=== PATIENT | female | born 2000 | race Caucasian/White ===

== ENCOUNTER 2021-06-23 14:41 | Emergency (ER) | payer BC, SELFPAY ==
[2021-06-23 14:54] VITALS: BP 140/94; PULSE 128; RESP 20; TEMP 37.2; O2SAT 98
--- NOTE | 2021-06-23 14:56 | ED.CHESTPAIN ---
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 Reports that she called her OB DR Huffman office and was told to go to the Urgent care. Patient is 24 weeks 6 days with a due date of October 06. This is her first , with twins. Takes an aspirin a day. Has a history of anxiety. Plans to deliver at [place]. States that she has been feeling the babies move. Related Data Home Medications Medication Instructions Recorded Confirmed folic acid 06/23/21 ondansetron HCl 06/23/21 [id number] fum-folic ac-om3 pkg PO 06/23/21 [Daily ] sertraline mg 06/23/21 Allergies Allergy/AdvReac Type Severity Reaction Status Date / Time No Known Allergies Allergy Verified 01/05/15 17:20 Review of Systems Review of Systems: All systems reviewed & are unremarkable except as noted in HPI and below Constitutional: Constitutional: Reports no additional constitutional complaints, Denies chills and Denies fever(s) Eyes: Eyes: Reports no additional eye complaints, Denies change in vision and Denies photophobia Cardiovascular: Cardiovascular: Reports as per HPI, Reports chest pain and Reports rapid heart rate Respiratory: Respiratory: Reports as per HPI and Reports dyspnea Gastrointestinal: Gastrointestinal: Reports as per HPI, Denies abdominal pain and Reports nausea Musculoskeletal: Musculoskeletal: Reports no additional musculoskeletal complaints Integumentary/Breasts: Skin/Breast: Reports system reviewed and no additional complaints, except as docu Neurologic: Reports system reviewed and no additional complaints, except as documented, Denies dizziness and Denies headache(s) Psychiatric: Psychiatric: Reports no additional psychiatric complaints Allergic/Immunologic: Allergic/Immunologic: Reports no additional allergic/immunologic complaints [facility] Past Medical History Medical History (Updated 06/23/21 @ 15:34 by Blanca Dubose) Anxiety Comments At the time of my signature, I reviewed and agree with the nursing past medical, surgical, social, and family history. There is no relevant family history pertinent to the patient complaint. Exam Const: General: healthy appearing and alert Nutritional Appearance: well nourished Orientation/consciousness: patient oriented x3 Limitations: no limitations HENMT: Head: normal to inspection Ears: external ears normal Eyes: Conjunctivae: conjunctivae normal Pupils: Equal, round and reactive pupils present Neck: Neck: normal visual inspection, no lymphadenopathy and no meningeal signs Chest: Chest palpation & inspection: normal inspection of the chest Resp: Effort & Inspection: normal respiratory effort and no use of accessory muscles Auscultation: clear to auscultation bilaterally, no crackles, no rales, no rhonchi and no wheezes Cardio: Jugular venous distension: no JVD Rate: tachycardic Rhythm: abnormal rhythm Peripheral pulses: radial pulses present bilateral Back/Spine/Pelvis: Back: no CVA tenderness Skin: General skin exam: normal color Rashes: no rashes Wounds: no wounds Neuro: General: patient oriented x3, moves all extremities, no meningeal signs and no focal motor deficits Speech: normal speech Gait exam (Neuro): Normal gait present Extrem: General: normal to inspection and no pedal edema Psych: Appearance: well kempt Affect: Anxious affect present Thought content: Yes Normal thought content present Course Course Emergency Course: Transfer instructions reviewed with patientjam
--- NOTE | 2021-06-23 15:04 | ECG_ITS ---
Measurements Intervals [place] Rate: 150 P: 49 WA: 115 QRS: 47 QRSD: 91 T: 1 QT: 291 QTc: 460 Interpretive Statements SINUS TACHYCARDIA WITH SHORT WA INTERVAL NONSPECIFIC ST & T-WAVE ABNORMALITY- INFERIOR LEADS BASELINE ARTIFACT- I, II, III, AVR, AVL, AVF, V2-V6 ABNORMAL ECG Electronically Signed On 06-23-2021 16:56:35 CDT by German Javier D.O.
--- NOTE | 2021-06-23 15:27 | PC.NURSE ---
Pt reports she is with twins that share the same placenta. Reports she has been feeling the babies move like normal.
== END 2021-06-23 15:20 | disposition short-term general hospital (02) ==
PROVIDERS: Emergency Provider Nurse Practitioner
DX: O90.89 Other complications of the puerperium, not elsewhere classified (principal); R07.9 Chest pain, unspecified; Z3A.24 24 weeks gestation of pregnancy
CPT/HCPCS: 93005; 99215; G0463

== ENCOUNTER 2021-06-23 15:36 | Emergency (ER) | payer BC, SELFPAY ==
--- NOTE | ~2021-06-23 | CT_ITS ---
EXAMINATION: CTA chest PE protocol DATE: 06/23/2021 18:39 INDICATION: Chest pain and shortness of breath TECHNIQUE: Computed tomography angiography (CTA) of the chest was performed with 100 mL Omnipaque-350 intravenous contrast timed to evaluate the pulmonary arteries. Coronal maximum intensity projection 3D-reconstructions were created by the technologist. The dose-length product (DLP) was 319.17 mGy-cm. Automated exposure control and iterative reconstruction technique were employed. COMPARISON: None. FINDINGS: The pulmonary arteries are well-opacified. No pulmonary embolism is identified. Respiratory motion artifact slightly limits the examination. There is atelectasis of the lungs. No focal airspac e opacity is identified. There is no pleural effusion or pneumothorax. No pathologically enlarged tho racic lymph nodes are identified. The heart size is normal. The visualized osseous structures are unr emarkable. IMPRESSION: 1. No pulmonary embolism or acute cardiopulmonary abnormality. Reviewed, dictated and finalized at location A.
--- NOTE | ~2021-06-23 | US_ITS ---
EXAMINATION: US venous doppler [facility] DATE: 06/23/2021 17:30 INDICATION: Shortness of breath and tachycardia TECHNIQUE: Isabel scale images without and with compression and Doppler images of the bilateral lower e xtremity veins were obtained. COMPARISON: None FINDINGS: The right common femoral vein, profunda femoral vein, femoral vein, popliteal vein, peroneal trunk, p osterior tibial veins, and greater saphenous vein are patent. The left common femoral vein, profunda femoral vein, femoral vein, popliteal vein, peroneal trunk, po sterior tibial veins, and greater saphenous vein are patent. IMPRESSION: 1. Patent bilateral lower extremity veins. No evidence of deep venous thrombosis. Reviewed, dictated and finalized at location A. IMPRESSION: 1. Patent bilateral lower extremity veins. No evidence of deep venous thrombosi s.
--- NOTE | ~2021-06-23 | XR_ITS ---
EXAMINATION: XR chest 2V EXAM DATE: 06/23/2021 16:03 INDICATION: Chest pain, shortness of breath, pt is 25 weeks , tachycardia. TECHNIQUE: Frontal and lateral projections of the chest obtained and reviewed. There is no prior don dy for comparison. FINDINGS: The lungs are clear. There are no pleural effusions. The cardiomediastinal silhouette is within normal limits. There is no pneumothorax suspected. The bones and soft tissues are unremarkab le. IMPRESSION: Normal chest x-ray exam. Reviewed, dictated and finalized at location B. IMPRESSION: Normal chest x-ray exam.
[2021-06-23 15:41] VITALS: BP 169/94; PULSE 132; RESP 18; TEMP 37.1; O2SAT 100
--- NOTE | 2021-06-23 15:42 | ECG_ITS ---
Measurements Intervals [place] Rate: 144 P: 61 WI: 119 QRS: 54 QRSD: 87 T: 6 QT: 304 QTc: 471 Interpretive Statements SINUS TACHYCARDIA WITH SHORT WI INTERVAL NONSPECIFIC ST & T-WAVE ABNORMALITY- INFERIOR LEADS BASELINE WANDER- V4-V5 ABNORMAL ECG Electronically Signed On 06-23-2021 17:00:11 CDT by German Javier D.O.
[2021-06-23 15:51] VITALS: PULSE 137
[2021-06-23 15:54] VITALS: PULSE 137
[2021-06-23 16:08] LABS: Basophils Absolute Auto 0.1 K/mm3 (0.0-0.1); Basophils Percent Auto 0.3 % (0.2-1.2); Eosinophils Absolute Auto 0.6 K/mm3 (0-0.3); Hematocrit 33.9 % (37.0-47.0); Hemoglobin 11.6 g/dL (12.0-15.0); Immature Granulocyte Absolute 0.33 K/mm3 (0.00-0.031); Immature Granulocyte Percent A 2.1 % (0-0.5); Lymphocytes Absolute Auto 2.65 K/mm3 (0.9-3.2); Mean Corpuscular HGB Conc 34.2 g/dl (32-36); Mean Corpuscular Hemoglobin 30.2 pg (26-34); Mean Corpuscular Volume 88.3 fl (80-100); Mean Platelet Volume 9.4 fl (7.4-10.4); Monocytes Absolute Auto 1.1 K/mm3 (0.1-0.6); Monocytes Percent Auto 7.1 % (2.6-8.5); Neutrophils Absolute Auto 10.8 K/mm3 (1.3-6.7); Neutrophils Percent Auto 69.5 % (45.5-73.1); Platelet Count Result 310 k/mm3 (150-375); Red Blood Count 3.84 M/mm3 (4.2-5.4); Red Cell Distribution Width 11.8 % (11.5-14.5); White Blood Count 15.6 K/mm3 (4.5-10.0)
[2021-06-23 16:20] LABS: INR 0.8; Prothrombin Time 11.3 Seconds (11.1-14.7)
[2021-06-23 16:21] LABS: Partial Thromboplastin Time 22.1 SECONDS (22.3-36.8)
[2021-06-23 16:23] LABS: Alanine Aminotransferase 22 U/L (4-35); Albumin Level 3.5 g/dL (3.5-5.1); Alkaline Phosphatase 138 U/L (38-126); Anion Gap 9 mmol/L (8-16); Aspartate Amino Transferase 25 U/L (14-36); Bilirubin,Total 0.3 mg/dL (0.2-1.3); Blood Urea Nitrogen 5 mg/dL (7-17); Calcium 9.3 mg/dL (8.4-10.2); Carbon Dioxide 20 mmol/L (22-30); Chloride 105 mmol/L (98-107); Estimated CRCL calculation 138 ml/min; Estimated Glomerular Filt Rate > 60; Glucose 105 mg/dL (65-110); Potassium 3.5 mmol/L (3.4-5.0); Sodium 134 mmol/L (137-145)
[2021-06-23 16:34] LABS: Troponin I < 0.012 ng/mL (0.000-0.034)
[2021-06-23] MEDS: SODIUM CHLORIDE 0.9% IV 1,000 ML 999 ML IV CONT (16:35)
[2021-06-23 16:40] LABS: D Dimer 1.64 ug/mL (<0.48)
--- NOTE | 2021-06-23 16:49 | ED.CHESTPAIN ---
HPI - Chest Pain General Chief Complaint: Chest Pain Stated Complaint: CP Time Seen by Provider: 06/23/21 15:41 Source: patient Mode of arrival: EMS Limitations: no limitations History of Present Illness HPI narrative: This is a 21 year old female that presents to the ER for intermittent chest pain noted over the last couple of days. Reports the pain is on the left side of her chest. It lasts briefly. It is worse with deep breathing. Reports today she noted feeling short of breath with exertion which prompted her to be seen in the Urgent care. Patient was noted to be tachycardic into the 150s, so was sent to the ER for further evaluation. Patient denies any current chest pain. She is currently 25 weeks . Her OB is Dr. Saldana. She has a monochorionic diamniotic twin . Denies fever, cough, abdominal pain, pelvic cramping, or vaginal bleeding. Related Data Home Medications Medication Instructions Recorded Confirmed Baby Aspirin 06/23/21 folic acid 06/23/21 ondansetron HCl 06/23/21 [id number] fum-folic ac-om3 pkg PO 06/23/21 [Daily ] sertraline mg 06/23/21 Allergies Allergy/AdvReac Type Severity Reaction Status Date / Time No Known Allergies Allergy Verified 06/23/21 15:51 Review of Systems Review of Systems: CONSTITUTIONAL: Denies fever CARDIOVASCULAR: Reports chest pain, palpitations. Denies edema. RESPIRATORY: Reports dyspnea. Denies cough GASTROINTESTINAL: Denies abdominal pain, nausea, vomiting GENITOURINARY: Denies dysuria All systems reviewed & are unremarkable except as noted in HPI and below PMFSH Past Medical History Medical History (Updated 06/23/21 @ 19:46 by Fariba Bush PA-C) Anxiety Social History Social History (Updated 06/23/21 @ 16:59 by Fariba Bush PA-C) Substance use: never Gender identity (if verbalized by the patient): Female Exam Narrative: GENERAL: Well-appearing, well-nourished, and in no acute distress. HEAD: Normocephalic, atraumatic. EYES: EOMI. ENT: Nares clear, no rhinorrhea or epistaxis. Mucous membranes moist. Oropharynx without tonsillar hypertrophy exudate or other lesions. NECK: Supple. No adenopathy or masses CHEST: Clear to auscultation. No respiratory distress. No wheezes rales or rhonchi HEART: Regular rhythm, tachycardic. No murmur heard. Normal peripheral pulses. ABDOMEN: Gravid, nontender, nondistended, normal active bowel sounds. EXTREMITIES: Normal range of motion. No edema. SKIN: Warm, dry, no rash. NEURO: No focal deficits. Alert and oriented x3. PSYCH: Normal mood and affect Course Consultations Consultation #1: Spoke with Dr. Saldana about patient and workup. Will follow up with patient in clinic Date: 06/23/21 Time: 19:38 Vital Signs Vital signs: Vital Signs Temperature 98.7 F 06/23/21 15:41 Pulse Rate 132 H 06/23/21 15:41 Respiratory Rate 18 06/23/21 15:41 Blood Pressure 169/94 H 06/23/21 15:41 Pulse Oximetry 100 06/23/21 15:41 Temperature 98.7 F 06/23/21 15:41 Pulse Rate 110 H 06/23/21 19:47 Respiratory Rate 17 06/23/21 19:47 Blood Pressure 123/70 06/23/21 19:47 Pulse Oximetry 100 06/23/21 19:47 Procedures Other Procedure Procedure 1: Other Procedure: Bedside ultrasound performed. I do see two fetuses with active cardiac motion and appropriate movement MDM - Chest Pain MDM Narrative Medical decision making narrative: Patient presents to the ER for chest pain and shortness of breath intermittently noted over the last couple of days. She is currently 25 weeks and her OB is Dr. Saldana. She is afebrile and nontoxic-appearing. Her vitals are stable. She denies any pelvic cramping or vaginal bleeding. Is feeling the babies move around. Oxygen saturation has remained normal on room air. Patient was tachycardic into the 130s on arrival. This did respond to fluid administration. Current heart rate 100. CBC does show leukocytosis to 15.
[2021-06-23 18:12] LABS: Add Urine Microscopic? NO; Appearance Urine Clear (Clear); Bilirubin Urine Negative (Negative); Blood Urine Negative (Negative); Color Urine Straw (Yellow); Glucose Urine UA Negative (Negative); Ketones Urine Negative (Negative); Leukocyte Esterase Ur Negative LEU/UL (Negative); Nitrate Urine Negative (Negative); Protein Urine Negative (Negative); Specific Grav Ur 1.011 (1.001-1.035); Urobilinogen Urine Negative mg/dL (<2.0)
[2021-06-23 18:14] VITALS: BP 138/88; PULSE 115; RESP 22; O2SAT 100
--- NOTE | 2021-06-23 19:43 | PC.NURSE ---
OB at bedside at this time. Pt resting on stretcher A&Ox4.
[2021-06-23 19:47] VITALS: BP 123/70; PULSE 110; RESP 17; O2SAT 100
[2021-06-23 19:53] LABS: Troponin I < 0.012 ng/mL (0.000-0.034)
--- NOTE | 2021-06-23 20:13 | PC.NURSE ---
[id number] Portable monitor brought to pt's bedside to monitor twins. Both twin A & B have baseline of 140 with moderate variability and 10x10 accelerations noted. Monitoring was intermittent d/t gestational age of 25 weeks. Pt is feeling adequate movement.
== END 2021-06-23 20:17 | disposition home or self-care (01) ==
PROVIDERS: Physician Assistant; Emergency Provider Emergency Medicine
DX: R07.9 Chest pain, unspecified (principal); R00.0 Tachycardia, unspecified; F41.9 Anxiety disorder, unspecified
CPT/HCPCS: 36415; 71046; 71275; 80048; 80076; 81003; 84484; 85025; 85380; 85610; 85730; 93005; 93970; 96360; 96361; 99284; J7030; Q9967

== ENCOUNTER 2021-06-29 13:42 | Outpatient (RCR) | payer BC, SELFPAY ==
--- NOTE | 2021-06-29 15:50 | PC.NURSE ---
Pt here stating she was having a lot of anxiety about the babies. Stated she just needed to have them monitored. Pt was out of her anxiety medication for a few days and went to the ED recently with an anxiety attack. States she has not had a therapist for awhile. Encouraged pt to get another therapist as anxiety may worsen with or after . Pt might be delivering at [place] due to high risk. ??mono/mono twins? pt stated because they were identical. Sat with pt awhile and had the babies on the monitor for a few minutes off and on. Pt became more calm, discussed movement. Pt states babies were moving a lot and worried that it was her anxiety that was making them move more. Discussed movement being good and watching for it at home. Instructed she may come in for monitoring if she is concerned. Verbalized understanding. Discussed labor precautions and what all to notify provider for.
== END 2021-07-05 07:24 | disposition home or self-care (01) ==
LOC: ANHOBOP 13:42
PROVIDERS: Visit Provider Obstetrics & Gynecology
DX: O99.342 Other mental disorders complicating pregnancy, second trimester (principal); F41.9 Anxiety disorder, unspecified; Z3A.25 25 weeks gestation of pregnancy
CPT/HCPCS: 99199

== ENCOUNTER 2022-03-02 15:33 | Outpatient (CLI) | payer BC, OTHER, SELFPAY ==
[2022-03-02 16:49] LABS: Beta HCG Quantitative < 2.39 mIU/ML
== END 2022-03-02 15:34 | disposition home or self-care (01) ==
LOC: ANHLAB 15:36
PROVIDERS: Visit Provider Obstetrics & Gynecology
DX: N92.6 Irregular menstruation, unspecified (principal)
CPT/HCPCS: 36415; 84702

== ENCOUNTER 2022-12-11 18:04 | Emergency (ER) | payer BC, OTHER, SELFPAY ==
[2022-12-11 18:16] VITALS: BP 156/94; PULSE 137; RESP 16; TEMP 36.9; O2SAT 100
--- NOTE | 2022-12-11 18:36 | ED.GENADULT ---
HPI - General Adult General Chief complaint: Ear Stated complaint: pink eye, ear infection Source: patient Mode of arrival: ambulatory Limitations: no limitations History of Present Illness HPI narrative: Patient presents for evaluation of right-sided ear pain for the last 2 days. She has associated muffled hearing. Her son has an ear infection and she is wondering if she does also. She reports sore throat and a mild cough. No fever, chills, nausea, vomiting, shortness of breath. She states she has also experienced thick green drainage from both eyes over last 2 days. She had some blurry vision but that has since corrected. She does not wear glasses nor contact lenses. No additional complaints or concerns. Related Data Home Medications Medication Instructions Recorded Confirmed levonorgestrel 20 mcg/24 hours (8 1 device intrauterine ONCE 03/03/22 12/11/22 yrs) 52 mg intrauterine device (Mirena) alprazolam 0.25 mg tablet 0.25 mg PO QHS PRN Anxiety 10/03/22 12/11/22 sertraline 100 mg tablet 100 mg PO DAILY 10/03/22 12/11/22 Allergies Allergy/AdvReac Type Severity Reaction Status Date / Time No Known Allergies Allergy Verified 12/11/22 18:13 Review of Systems Review of Systems: CONSTITUTIONAL: Denies fever, chills, or sweats. EYES: Reports green drainage from both eyes. Reports recent blurred vision, since resolved. ENT: Reports sore throat, bilateral otalgia and muffled hearing in right ear CARDIOVASCULAR: Denies chest pain, palpitations, or edema. RESPIRATORY:Reports cough. Denies dyspnea. GASTROINTESTINAL: Denies abdominal pain, nausea, vomiting, or diarrhea. GENITOURINARY: Denies dysuria or hematuria. SKIN: Denies rash or itching. MUSCULOSKELETAL: Denies back pain, joint pain, or myalgia. NEUROLOGIC: Denies headache, numbness, dizziness, or weakness. PSYCHIATRIC: Denies anxiety or depression. [facility] Past Medical History Medical History Anxiety Depression Encounter for insertion of mirena IUD Encounter for insertion of mirena IUD (~03/03/22) Encounter for screening examination for sexually transmitted disease Irregular periods Surgical History Surgical History Delivery by section (09/01/21) twin delivery @ 34 weeks History of gynecological procedure (09/01/21) Paragard IUD inserted History of placement of ear tubes History of tonsillectomy and adenoidectomy Family History Family History (Updated 12/11/22 @ 18:45 by RACHEL Duarte, ) Mother Family history non-contributory Social History Social History Smoking status: Never smoker Second hand tobacco smoke exposure: No Alcohol intake: current Drinks per week: 1 Substance use: never Substance use type: does not use Additional living arrangements comments: parents and boyfriend 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 HEAD: Normocephalic, atraumatic. EYES: PERRLA and EOMI. ENT: Nares clear, no rhinorrhea or epistaxis. Mucous membranes moist. She has posterior pharyngeal erythema without exudate. Uvula is midline. Unable to visualize TM's due to cerumen in bilateral ear canals. NECK: Supple. No adenopathy or masses. No carotid bruits or JVD CHEST: Clear to auscultation. No respiratory distress. No wheezes rales or rhonchi HEART: Regular rate and rhythm. No murmur heard. Normal peripheral pulses. ABDOMEN: Soft, nontender, nondistended, normal active bowel sounds. EXTREMITIES: Normal range of motion. No edema. SKIN: Warm, dry, no rash. NEURO: No focal deficits. Alert
== END 2022-12-11 18:36 | disposition home or self-care (01) ==
PROVIDERS: Emergency Provider Nurse Practitioner; PCP Internal Medicine
DX: H61.23 Impacted cerumen, bilateral (principal); J02.9 Acute pharyngitis, unspecified; H10.30 Unspecified acute conjunctivitis, unspecified eye; F41.9 Anxiety disorder, unspecified; F32.9 Major depressive disorder, single episode, unspecified
CPT/HCPCS: 69209; 87081; 87880; 99213; G0463

== ENCOUNTER 2025-03-04 12:52 | Emergency (ER) | payer BC, SELFPAY ==
[2025-03-04 13:02] VITALS: BP 136/88; PULSE 120; RESP 16; TEMP 36.7; O2SAT 100
[2025-03-04 13:23] LABS: EDSTREPNEGPOS1 Positive (Negative)
--- NOTE | 2025-03-04 13:38 | ED_ITS ---
HPI - URI/Sore Throat General Chief Complaint: Upper Respiratory Infection Stated Complaint: Strep Symptoms Time Seen by Provider: 03/04/25 13:20 Source: patient and RN notes reviewed Mode of arrival: ambulatory Limitations: no limitations History of Present Illness HPI Narrative: 24-year-old female presents to the [facility] complaining upper respiratory symptoms for 5 days. Patient reports having pain with swallowing and nasal dryness the last 5 days. Boyfriend was diagnosed with strep throat and was placed on antibiotics. She is wondering if she has strep throat as well. She denies having a sore throat, fevers, chills, body aches, difficulty swallowing, difficulty breathing, nausea, vomiting, or diarrhea. Patient said she took a couple amoxicillin is on Sunday when her symptoms started that she had left over. She has been taking Tylenol for her pain with some relief. Related Data Home Medications ?Medication ?Instructions ?Recorded ?Confirmed ?Last Taken ?Type alprazolam 0.25 mg tablet 0.25 mg PO QHS PRN Anxiety 10/03/22 02/04/24 Unknown History sertraline 100 mg tablet 100 mg PO DAILY 10/03/22 02/04/24 Unknown History semaglutide (weight loss) 1 mg/0.5 1 mg subcut WEEKLY 09/24/24 Unknown History mL subcutaneous pen injector (Wegovy) atomoxetine 25 mg capsule mg PO 03/04/25 Unknown History atomoxetine 40 mg capsule mg PO 03/04/25 Unknown History sertraline 50 mg tablet mg 03/04/25 Unknown History Allergies Allergy/AdvReac Type Severity Reaction Status Date / Time No Known Allergies Allergy Verified 03/04/25 12:57 Review of Systems Review of Systems: CONSTITUTIONAL: Denies fever, chills, or sweats. EYES: Denies visual changes, redness, or discharge. ENT: Denies rhinorrhea, congestion, sore throat, or otalgia. Positive for pain with swallowing. CARDIOVASCULAR: Denies chest pain, palpitations, or edema. RESPIRATORY: Denies cough or dyspnea. GASTROINTESTINAL: Denies abdominal pain, nausea, vomiting, or diarrhea. GENITOURINARY: Denies dysuria or hematuria. SKIN: Denies rash or itching. MUSCULOSKELETAL: Denies back pain, joint pain, or myalgia. NEUROLOGIC: Denies headache, numbness, or weakness. PSYCHIATRIC: Denies anxiety or depression. All other systems reviewed are negative, except as documented in HPI. [facility] Past Medical History Medical History Encounter for insertion of mirena IUD (~03/03/22) Encounter for insertion of mirena IUD Encounter for screening examination for sexually transmitted disease Irregular periods Depression Anxiety Surgical History Surgical History History of gynecological procedure (09/01/21) mirena IUD inserted, removed 09/24/2024 Delivery by section (09/01/21) twin delivery @ 34 weeks History of placement of ear tubes History of tonsillectomy and adenoidectomy Family History Family History Mother Family history non-contributory Father No problems noted. Sibling No problems noted. Social History Social History Smoking status: Never smoker Second hand tobacco smoke exposure: No Alcohol intake: current Drinks per week: 1 Substance use: never Substance use type: does not use Do You Feel Safe in your Home?: Yes Lack of Transportation: No Lack of Food: Never True Current Housing: I Have Housing Concerned About Future Housing: No Difficulty Paying Gas/Electric Bills: No Difficulty Paying for Meds: No Currently Unemployed: No Education: Master's Degree or Higher Difficulty w/ Childcare or Family Care: No Living arrangements: with family Additional living arrangements comments: parents and boyfriend Occupation/Education: student Additional occupation/education comments: [employer] student Gender identity (if verbalized by the patient): Female Sexual Orientation (if Verbalized by the Patient): Straight or Heterosexual Comments At the time of my signature, I reviewed and agree with the nursing past medical, surgical, social, and family history. There is no relevant family history pertinent to the patient complaint. Exam Narrative: GENERAL: This is a well-nourished, well-developed adult, in no apparent distress. They are non ill-appearing, nontoxic appearing. Patient is anxious HEAD: normocephalic, atraumatic. EYES: Sclera clear/white. Vision is grossly intact. EARS: External ears normal, auditory canals clear and without drainage, TMs normal without perforation. Hearing grossly intact. NOSE: External nose normal with no obvious nasal discharge, nares without redness, no rhinorrhea. THROAT: Mucous membranes moist, posterior pharynx erythematous. No exudate. Uvula is midline NECK: Neck supple, non-tender without lymphadenopathy, masses or thyromegaly. CARDIOVASCULAR: Tachycardic rate and rhythm without murmurs, gallops, or rubs. RESPIRATORY: Clear to auscultation. Breath sounds equal bilaterally. No wheezes, rales, or rhonchi. SKIN: warm, Dry, intact with no suspicious lesions or rash, good texture and turgor. NEURO: awake, alert, and oriented to person, place and time. There were no obvious focal neurologic abnormalities. EXTREMITIES: No joint tenderness, effusion, or edema noted. Course Course Level of Care: Express Care Visit Vital Signs Vital signs: Vital Signs Temperature 98.1 F 03/04/25 13:02 Pulse Rate 120 H 03/04/25 13:02 Respiratory Rate 16 03/04/25 13:02 Blood Pressure 136/88 03/04/25 13:02 Pulse Oximetry 100 03/04/25 13:02 Temperature 98.1 F 03/04/25 13:02 Pulse Rate 120 H 03/04/25 13:02 Respiratory Rate 16 03/04/25 13:02 Blood Pressure 136/88 03/04/25 13:02 Pulse Oximetry 100 03/04/25 13:02 Reviewed MDM - URI/Sore Throat MDM Narrative Medical decision making narrative: Rapid strep is positive. Will treat empirically with amoxicillin. Discussed physical exam findings. Advised supportive measures and signs/symptoms to go to the ER. Pt is appropriate for outpt treatment and f/u. Differential Diagnosis Differential diagnosis: Likely upper respiratory infection, viral infection and pharyngitis Lab Data Attestation: I reviewed the patient's lab results. Labs: Lab Results 03/04/25 Range/Units 13:21 POC Grp A Strep Screen Positive (Negative) Critical Care Time Critical Care Time Critical Care Time: No Discharge Plan Discharge Clinical Impression: Acute streptococcal pharyngitis Patient Disposition: Home Condition: Stable Instructions: Antibiotic Form, Strep Throat (DC) Additional Instructions: You tested positive for strep throat. ?Please take the amoxicillin as prescribed until gone. ?You will be contagious for 24 hours after starting the medication. ?After 24 hours on antibiotics throw tooth brush away and start using a new one. Wash your sheets and cup/water bottle that is used daily. Do not share drinks. Take Tylenol or Ibuprofen for pain or fever, if able. ?Rest and stay hydrated. ?Follow up with your PCP in 3 days if symptoms are not improving. ?Go to the ER immediately if you develop worsening symptoms such as shortness of breath, difficulty swallowing. ? Patient Language: Kazakh Prescriptions: New amoxicillin 500 mg tablet 500 mg PO Q12H 10 Days Qty: 20 0RF No Action sertraline 50 mg tablet atomoxetine 25 mg capsule PO atomoxetine 40 mg capsule PO sertraline 100 mg tablet 100 mg PO DAILY alprazolam 0.25 mg tablet 0.25 mg PO QHS PRN (Reason: Anxiety) Wegovy 1 mg/0.5 mL pen injector 1 mg subcut WEEKLY Rx Instructions: administer weeks 9 through 12 of therapy Follow-up/Referrals: PHYSICIAN,HOGSHEAD FILLER [Primary Care Provider] - Stand Alone Forms: Work/School Release IP Time of Disposition: 13:30
== END 2025-03-04 13:32 | disposition home or self-care (01) ==
DX: J02.0 Streptococcal pharyngitis (principal); F41.9 Anxiety disorder, unspecified; F32.A Depression, unspecified
CPT/HCPCS: 87880; 99213; G0463

== ENCOUNTER 2025-04-07 09:21 | Emergency (ER) | payer BC, SELFPAY ==
--- NOTE | 2025-04-07 09:39 | ED_ITS ---
HPI - Ear Problem General Chief complaint: Ear Stated complaint: Ear Pain Time Seen by Provider: 04/07/25 09:39 Source: patient and RN notes reviewed Mode of arrival: ambulatory Limitations: no limitations History of Present Illness HPI Narrative: 24-year-old female presents Express Care complaining of bilateral ear pain for 3 days. Patient states her left ear is worse than right. Patient reports also having congestion and a sore throat. Patient denies any cough, fevers, body aches, chills, or any other symptoms. Patient had left over ear drops and placed ear drops in her ears and said that her right ear feels better but her left ear still hurts. Related Data Home Medications ?Medication ?Instructions ?Recorded ?Confirmed ?Last Taken ?Type alprazolam 0.25 mg tablet 0.25 mg PO QHS PRN Anxiety 10/03/22 02/04/24 Unknown History sertraline 100 mg tablet 100 mg PO DAILY 10/03/22 02/04/24 Unknown History semaglutide (weight loss) 1 mg/0.5 1 mg subcut WEEKLY 09/24/24 Unknown History mL subcutaneous pen injector (Wegovy) atomoxetine 40 mg capsule mg PO 03/04/25 Unknown History sertraline 50 mg tablet mg 03/04/25 Unknown History Allergies Allergy/AdvReac Type Severity Reaction Status Date / Time No Known Allergies Allergy Verified 04/07/25 09:43 Review of Systems Review of Systems: CONSTITUTIONAL: Denies fever, chills, body aches, or sweats. EYES: Denies visual changes, redness, or discharge. ENT: Denies rhinorrhea. Positive for congestion, sore throat, hand otalgia. CARDIOVASCULAR: Denies chest pain, palpitations, or edema. RESPIRATORY: Denies cough or dyspnea. GASTROINTESTINAL: Denies abdominal pain, nausea, vomiting, or diarrhea. GENITOURINARY: Denies dysuria or hematuria. SKIN: Denies rash or itching. MUSCULOSKELETAL: Denies back pain, joint pain, or myalgia. NEUROLOGIC: Denies headache, numbness, or weakness. PSYCHIATRIC: Denies anxiety or depression. All other systems reviewed are negative, except as documented in HPI. [facility] Past Medical History Medical History Encounter for insertion of mirena IUD (~03/03/22) Encounter for insertion of mirena IUD Encounter for screening examination for sexually transmitted disease Irregular periods Depression Anxiety Surgical History Surgical History History of gynecological procedure (09/01/21) mirena IUD inserted, removed 09/24/2024 Delivery by section (09/01/21) twin delivery @ 34 weeks History of placement of ear tubes History of tonsillectomy and adenoidectomy Family History Family History Mother Family history non-contributory Father No problems noted. Sibling No problems noted. Social History Social History Smoking status: Never smoker Second hand tobacco smoke exposure: No Alcohol intake: current Drinks per week: 1 Substance use: never Substance use type: does not use Do You Feel Safe in your Home?: Yes Lack of Transportation: No Lack of Food: Never True Current Housing: I Have Housing Concerned About Future Housing: No Difficulty Paying Gas/Electric Bills: No Difficulty Paying for Meds: No Currently Unemployed: No Education: Master's Degree or Higher Difficulty w/ Childcare or Family Care: No Living arrangements: with family Additional living arrangements comments: parents and boyfriend Occupation/Education: student Additional occupation/education comments: [employer] student Gender identity (if verbalized by the patient): Female Sexual Orientation (if Verbalized by the Patient): Straight or Heterosexual Comments At the time of my signature, I reviewed and agree with the nursing past medical, surgical, social, and family history. There is no relevant family history pe rtinent to the patient complaint. Exam Narrative: GENERAL: This is a well-nourished, well-developed adult, in no apparent distress. They are non ill-appearing, nontoxic appearing. HEAD: normocephalic, atraumatic. EYES: Sclera clear/white. Conjunctiva normal. Vision is grossly intact. Extraocular movements intact EARS: External ears normal, auditory canals clear and without drainage, right TMs normal without perforation. Left TM is erythematous and bulging. Left TM without perforation. Hearing grossly intact. NOSE: External nose normal with no obvious nasal discharge, nasal turbinates erythemic without swelling, no rhinorrhea. THROAT: Mucous membranes moist, posterior pharynx without erythema or swelling. Uvula midline. Postnasal drip present. No exudate. NECK: Neck supple, non-tender without lymphadenopathy, masses or thyromegaly. CARDIOVASCULAR: Regular rate and rhythm without murmurs, gallops, or rubs. RESPIRATORY: Clear to auscultation. Breath sounds equal bilaterally. No wheezes, rales, or rhonchi. SKIN: warm, Dry, intact with no suspicious lesions or rash, good texture and turgor. NEURO: awake, alert, and oriented to person, place and time. There were no obvious focal neurologic abnormalities. EXTREMITIES: No joint tenderness, effusion, or edema noted. BACK: Nontender without deformity. Course Course Emergency Course: Portions of this record may have been created with voice recognition software Level of Care: Express Care Visit Vital Signs Vital signs: Reviewed Medical Decision Making MDM Narrative Medical decision making narrative: Patient has otitis media to the left ear. No TM perforation. Patient recently was on amoxicillin for strep throat within the last month. Will treat her with Augmentin instead for her ear infection. Discussed physical exam findings. Advised supportive measures and signs/symptoms to go to the ER. Pt is appropriate for outpt treatment and f/u. Differential Diagnosis Differential Diagnosis: Otitis media, otitis externa, upper respiratory infection Critical Care Time Critical Care Time Critical Care Time: No Discharge Plan Discharge Clinical Impression: Otitis media Qualifiers: Otitis media type: suppurative Chronicity: acute Laterality: left Recurrence: non-recurrent Spontaneous tympanic membrane rupture: without spontaneous rupture Qualified Code(s): H66.002 - Acute suppurative otitis media without spontaneous rupture of ear drum, left ear Patient Disposition: Home Condition: Stable Instructions: Antibiotic Form, Ear Infection (ED) Additional Instructions: Take antibiotics as directed. Recommend antihistamine such as Benadryl, Zyrtec or Whit for sinus congestion Flonase nasal spray, 2 spray in each nostril once daily until symptoms improve Symptomatic treatment includes: rest, fluids, and increase humidity of the air at home. Tylenol or ibuprofen as needed for pain or fevers Please schedule a follow-up visit with your personal physician for further evaluation and treatment within 3-5days. If your symptoms persist, change or worsen significantly, go to the emergency department for further evaluation. Patient Language: Luxembourgish Prescriptions: New amoxicillin-pot clavulanate 875-125 mg tablet 1 tablet PO Q12H 7 Days Qty: 14 0RF No Action sertraline 50 mg tablet atomoxetine 40 mg capsule PO sertraline 100 mg tablet 100 mg PO DAILY alprazolam 0.25 mg tablet 0.25 mg PO QHS PRN (Reason: Anxiety) Wegovy 1 mg/0.5 mL pen injector 1 mg subcut WEEKLY Rx Instructions: administer weeks 9 through 12 of therapy Follow-up/Referrals: UNKNOWN,DOCTOR [Primary Care Provider] - Stand Alone Forms: Work/School Release IP Time of Disposition: 09:46
== END 2025-04-07 09:50 | disposition home or self-care (01) ==
DX: H66.002 Acute suppurative otitis media without spontaneous rupture of ear drum, left ear (principal); F41.9 Anxiety disorder, unspecified; F32.A Depression, unspecified
CPT/HCPCS: 99213; G0463